=== PATIENT | male | born 1985 | race African-American/Black ===

== ENCOUNTER 2018-05-14 11:28 | Inpatient (IN) | payer OTHER ==
[2018-05-14] VITALS (10 sets, daily range): BP systolic 95–140
[~2018-05-14] VITALS: Ht 175.3 cm; Wt 72.6 kg
[2018-05-14] MEDS ORDERED: NACL 0.9% 1,000 ML IV ONE (11:45)
[2018-05-14] MEDS ORDERED: LIDOCAINE/EPI 1% 1:100000 20 ML VIAL INJ ONE (11:45)
[2018-05-14] MEDS ORDERED: ETOMIDATE 20 MG/ 10 ML VIAL (AMIDATE) IVP ONE (11:45)
[2018-05-14 12:03] LABS: BASOPHILS % (AUTO) 0.7 % (0.0-2.0); EOSINOPHILS # (AUTO) 0.1 K/uL (0.0-0.4); EOSINOPHILS % (AUTO) 1.4 % (0.0-4.0); HEMATOCRIT 44.5 % (36-54); HEMOGLOBIN 14.3 g/dL (14.0-18.0); LYMPHOCYTES # (AUTO) 1.5 K/uL (1.0-5.5); MEAN CORPUSCULAR HEMOGLOBIN 27 pg (27-31); MEAN CORPUSCULAR HGB CONC 32 % (32-36); MEAN CORPUSCULAR VOLUME 86 fL (79.0-98.0); MONOCYTES # (AUTO) 0.5 K/uL (0.0-1.0); MONOCYTES % (AUTO) 7.7 % (1.7-9.3); NEUTROPHILS # (AUTO) 4.6 K/uL (1.8-7.7); NEUTROPHILS % (AUTO) 68.2 % (40.0-70.0); PLATELET COUNT (AUTO) 264 K/uL (130-430); RED CELL DISTRIBUTION WIDTH 12.8 % (9.0-15.0); WHITE BLOOD COUNT (AUTO) 6.7 K/uL (4.8-10.8)
[2018-05-14 12:15] LABS: CREATININE 1.06 mg/dL (0.55-1.30); POTASSIUM 4.6 mmol/L (3.5-5.1)
[2018-05-14 12:16] LABS: INR 1.2 (0.80-1.20); PROTHROMBIN TIME 11.6 SECS (9.5-12.5)
[2018-05-14 12:21] LABS: ALBUMIN 3.2 g/dL (3.4-4.8); TOTAL BILIRUBIN 0.5 mg/dL (0.0-1.0)
[2018-05-14] MEDS ORDERED: LORazepam 2 MG/ML VIAL (FOR ER USE) ONE (12:59)
[2018-05-14] MEDS ORDERED: LORazepam 2 MG/ML VIAL IVP ONE (13:15)
[2018-05-14] MEDS ORDERED: OLAN5TAB3 PO (14:30)
[2018-05-14] MEDS ORDERED: VIS50 PO (14:30)
[2018-05-14] MEDS ORDERED: MOM PO (14:30)
[2018-05-14] MEDS ORDERED: TRAZ-123 PO (14:30)
[2018-05-14] MEDS ORDERED: DIVA500T4 PO (14:30)
[2018-05-14] MEDS ORDERED: ANT30 PO (14:30)
[2018-05-14] MEDS ORDERED: ACET-2165 PO (14:30)
[2018-05-14] MEDS ORDERED: TEMA15CA5 PO (14:30)
[2018-05-14] MEDS ORDERED: MAG-AL HYDROX/SIMETH 30 ML UDC PO PRN (17:15)
[2018-05-14] MEDS: traZODone HCL 50 MG TABLET (DESYREL) PO SCH (20:31)
[2018-05-14] MEDS: TEMAZEPAM 15 MG CAPSULE PO SCH (20:32)
[2018-05-14] MEDS: OLANZapine 5 MG TABLET PO SCH (20:32)
[2018-05-14] MEDS: DIVALPROEX SODIUM 500 MG TAB.SR.24H (DEPAKOTE ER) PO SCH (20:32)
[2018-05-14] MEDS: NORMAL SALINE 5 ML DISP.SYRIN IVF SCH ×2 (20:33→22:49)
[2018-05-14] MEDS: traMADol HCL HCL 50 MG TABLET (ULTRAM) PO PRN (22:46)
[2018-05-15] VITALS (16 sets, daily range): BP systolic 101–152
[2018-05-15] MEDS: NORMAL SALINE 5 ML DISP.SYRIN IVF SCH ×3 (05:28→20:45)
[2018-05-15 07:03] LABS: BASOPHILS % (AUTO) 0.3 % (0.0-2.0); EOSINOPHILS # (AUTO) 0.1 K/uL (0.0-0.4); EOSINOPHILS % (AUTO) 2.1 % (0.0-4.0); HEMATOCRIT 41.6 % (36-54); HEMOGLOBIN 13.1 g/dL (14.0-18.0); LYMPHOCYTES # (AUTO) 2.3 K/uL (1.0-5.5); MEAN CORPUSCULAR HEMOGLOBIN 27 pg (27-31); MEAN CORPUSCULAR HGB CONC 31 % (32-36); MEAN CORPUSCULAR VOLUME 87 fL (79.0-98.0); MONOCYTES # (AUTO) 0.5 K/uL (0.0-1.0); MONOCYTES % (AUTO) 7.1 % (1.7-9.3); NEUTROPHILS # (AUTO) 3.8 K/uL (1.8-7.7); NEUTROPHILS % (AUTO) 56.5 % (40.0-70.0); PLATELET COUNT (AUTO) 236 K/uL (130-430); RED BLOOD CELL COUNT(AUTO) 4.81 MIL/uL (4.2-6.2); RED CELL DISTRIBUTION WIDTH 12.7 % (9.0-15.0); WHITE BLOOD COUNT (AUTO) 6.7 K/uL (4.8-10.8)
[2018-05-15 07:04] LABS: CALCIUM 8.6 mg/dL (8.4-11.0); CREATININE 0.89 mg/dL (0.55-1.30); POTASSIUM 4.1 mmol/L (3.5-5.1)
[2018-05-15] MEDS: DIVALPROEX SODIUM 500 MG TAB.SR.24H (DEPAKOTE ER) PO SCH ×2 (08:59→20:44)
[2018-05-15] MEDS: OLANZapine 5 MG TABLET PO SCH ×2 (08:59→20:45)
[2018-05-15] MEDS: MILK OF MAGNESIA 30 ML UDC PO SCH (09:00)
[2018-05-15] MEDS: ENOXAPARIN SODIUM 40 MG/0.4 ML SYRINGE SUBCUT SCH (09:01)
[2018-05-15] MEDS: traMADol HCL HCL 50 MG TABLET (ULTRAM) PO PRN (09:02)
[2018-05-15] MEDS: NEOMY SULF/BACITRAC ZN/POLY 28 GM OINT..GM. TP SCH (10:56)
[2018-05-15] MEDS: traZODone HCL 50 MG TABLET (DESYREL) PO SCH (20:43)
[2018-05-15] MEDS: TEMAZEPAM 15 MG CAPSULE PO SCH (20:44)
[2018-05-16] VITALS: BP_SYST 121
[2018-05-16] MEDS: NORMAL SALINE 5 ML DISP.SYRIN IVF SCH ×3 (06:39→20:23)
[2018-05-16 07:30] VITALS: BP_SYST 96
[2018-05-16] MEDS: DIVALPROEX SODIUM 500 MG TAB.SR.24H (DEPAKOTE ER) PO SCH ×2 (08:19→20:21)
[2018-05-16] MEDS: OLANZapine 5 MG TABLET PO SCH ×2 (08:19→20:22)
[2018-05-16] MEDS: MILK OF MAGNESIA 30 ML UDC PO SCH (08:19)
[2018-05-16] MEDS: NEOMY SULF/BACITRAC ZN/POLY 28 GM OINT..GM. TP SCH (08:19)
[2018-05-16] MEDS: ENOXAPARIN SODIUM 40 MG/0.4 ML SYRINGE SUBCUT SCH (08:22)
[2018-05-16] MEDS: traMADol HCL HCL 50 MG TABLET (ULTRAM) PO PRN (10:33)
[2018-05-16 10:58] VITALS: BP_SYST 108
[2018-05-16 17:03] VITALS: BP_SYST 105; BP_SYST 149
[2018-05-16 19:00] VITALS: BP_SYST 101
[2018-05-16] MEDS: traZODone HCL 50 MG TABLET (DESYREL) PO SCH (20:21)
[2018-05-16] MEDS: TEMAZEPAM 15 MG CAPSULE PO SCH (20:22)
[2018-05-16] MEDS: ACETAMINOPHEN 325 MG TABLET PO PRN (20:25)
[2018-05-17] VITALS: BP_SYST 105
[2018-05-17] MEDS: NORMAL SALINE 5 ML DISP.SYRIN IVF SCH ×3 (06:35→21:23)
[2018-05-17 07:45] VITALS: BP_SYST 112
[2018-05-17] MEDS: ENOXAPARIN SODIUM 40 MG/0.4 ML SYRINGE SUBCUT SCH (09:08)
[2018-05-17] MEDS: MILK OF MAGNESIA 30 ML UDC PO SCH (09:08)
[2018-05-17] MEDS: OLANZapine 5 MG TABLET PO SCH ×2 (09:09→20:20)
[2018-05-17] MEDS: DIVALPROEX SODIUM 500 MG TAB.SR.24H (DEPAKOTE ER) PO SCH ×2 (09:09→20:21)
[2018-05-17] MEDS: NEOMY SULF/BACITRAC ZN/POLY 28 GM OINT..GM. TP SCH (09:10)
[2018-05-17] MEDS: ACETAMINOPHEN 325 MG TABLET PO PRN (11:59)
[2018-05-17 12:08] VITALS: BP_SYST 125
[2018-05-17 16:31] VITALS: BP_SYST 119
[2018-05-17] MEDS: traZODone HCL 50 MG TABLET (DESYREL) PO SCH (21:20)
[2018-05-17] MEDS: TEMAZEPAM 15 MG CAPSULE PO SCH (21:20)
[2018-05-17 21:41] VITALS: BP_SYST 122
[2018-05-18 00:41] VITALS: BP_SYST 117
[2018-05-18] MEDS: ACETAMINOPHEN 325 MG TABLET PO PRN ×3 (05:46→20:12)
[2018-05-18] MEDS: NORMAL SALINE 5 ML DISP.SYRIN IVF SCH ×3 (05:47→21:56)
[2018-05-18 08:00] VITALS: BP_SYST 116
[2018-05-18] MEDS: OLANZapine 5 MG TABLET PO SCH ×2 (09:35→20:12)
[2018-05-18] MEDS: NEOMY SULF/BACITRAC ZN/POLY 28 GM OINT..GM. TP SCH (09:35)
[2018-05-18] MEDS: MILK OF MAGNESIA 30 ML UDC PO SCH (09:35)
[2018-05-18] MEDS: DIVALPROEX SODIUM 500 MG TAB.SR.24H (DEPAKOTE ER) PO SCH ×2 (09:35→20:12)
[2018-05-18] MEDS: ENOXAPARIN SODIUM 40 MG/0.4 ML SYRINGE SUBCUT SCH (09:36)
[2018-05-18 12:00] VITALS: BP_SYST 115
[2018-05-18 16:00] VITALS: BP_SYST 124
[2018-05-18 20:00] VITALS: BP_SYST 127
[2018-05-18] MEDS: traZODone HCL 50 MG TABLET (DESYREL) PO SCH (20:12)
[2018-05-18] MEDS: TEMAZEPAM 15 MG CAPSULE PO SCH (21:12)
[2018-05-18 23:31] VITALS: BP_SYST 116
[2018-05-19] MEDS: NORMAL SALINE 5 ML DISP.SYRIN IVF SCH ×3 (06:45→22:36)
[2018-05-19 08:00] VITALS: BP_SYST 124
[2018-05-19] MEDS: OLANZapine 5 MG TABLET PO SCH ×2 (09:26→22:36)
[2018-05-19] MEDS: ENOXAPARIN SODIUM 40 MG/0.4 ML SYRINGE SUBCUT SCH (09:26)
[2018-05-19] MEDS: MILK OF MAGNESIA 30 ML UDC PO SCH (09:26)
[2018-05-19] MEDS: NEOMY SULF/BACITRAC ZN/POLY 28 GM OINT..GM. TP SCH (09:27)
[2018-05-19] MEDS: DIVALPROEX SODIUM 500 MG TAB.SR.24H (DEPAKOTE ER) PO SCH ×2 (09:27→22:36)
[2018-05-19 12:42] VITALS: BP_SYST 118
[2018-05-19 16:28] VITALS: BP_SYST 121
[2018-05-19 20:00] VITALS: BP_SYST 130; BP_SYST 146
[2018-05-19] MEDS: TEMAZEPAM 15 MG CAPSULE PO SCH (22:36)
[2018-05-19] MEDS: traZODone HCL 50 MG TABLET (DESYREL) PO SCH (22:36)
[2018-05-20 00:53] VITALS: BP_SYST 118
[2018-05-20 07:45] VITALS: BP_SYST 103
[2018-05-20] MEDS: DIVALPROEX SODIUM 500 MG TAB.SR.24H (DEPAKOTE ER) PO SCH (08:51)
[2018-05-20] MEDS: MILK OF MAGNESIA 30 ML UDC PO SCH (08:52)
[2018-05-20] MEDS: OLANZapine 5 MG TABLET PO SCH (08:52)
[2018-05-20] MEDS: traMADol HCL HCL 50 MG TABLET (ULTRAM) PO PRN (08:52)
[2018-05-20] MEDS: ENOXAPARIN SODIUM 40 MG/0.4 ML SYRINGE SUBCUT SCH (08:53)
[2018-05-20] MEDS: NEOMY SULF/BACITRAC ZN/POLY 28 GM OINT..GM. TP SCH (09:03)
[2018-05-20 12:11] VITALS: BP_SYST 111
[2018-05-20] MEDS: NORMAL SALINE 5 ML DISP.SYRIN IVF SCH (14:00)
[2018-05-20] MEDS ORDERED: HALOPERIDOL LACTATE 5 MG/ML VIAL IM ONE (15:15)
[2018-05-20] MEDS ORDERED: DIPHENHYDRAMINE INJ 50 MG/ML VIAL IM ONE (15:15)
[2018-05-20] MEDS ORDERED: DIPHENHYDRAMINE HCL 50 MG CAPSULE PO ONE (15:15)
[2018-05-20] MEDS ORDERED: OLANZapine 10 MG TAB.RAPDIS PO ONE (15:15)
[2018-05-20] MEDS ORDERED: LORazepam 2 MG/ML VIAL IM ONE (15:15)
[2018-05-20 15:25] VITALS: BP_SYST 115
[2018-05-20 16:59] VITALS: BP_SYST 110
[2018-05-20 17:34] VITALS: BP_SYST 110
[2018-05-20] MEDS ORDERED: OLANZapine 5 MG TABLET PO SCH (21:00)
== END 2018-05-20 20:20 | DRG 200 ==
LOC: SED 11:28 → SIC 14:13 → SMU 05-15 14:50
PROVIDERS: ADMIT Family Medicine; ATTEND Family Medicine
PROC: 0W9900Z Drainage of Right Pleural Cavity with Drainage Device, Open Approach (ICD-10-PCS; principal; 2018-05-14)
DX: S27.0XXA Traumatic pneumothorax, initial encounter (principal); S22.31XA Fracture of one rib, right side, initial encounter for closed fracture; F31.5 Bipolar disorder, current episode depressed, severe, with psychotic features; F12.90 Cannabis use, unspecified, uncomplicated; F15.90 Other stimulant use, unspecified, uncomplicated; F17.210 Nicotine dependence, cigarettes, uncomplicated; Y04.0XXA Assault by unarmed brawl or fight, initial encounter; Y93.89 Activity, other specified; Y99.8 Other external cause status; Y92.098 Other place in other non-institutional residence as the place of occurrence of the external cause
CPT/HCPCS: 36415; 71045; 71250-TC; 80048; 80053; 85025; 85610-TC; 87081; 93005; 96361; 96374; 99291; J1200; J1630; J1650; J2060; J3490